=== PATIENT | female | born 1945 | race Caucasian/White ===

== ENCOUNTER 2018-05-29 06:05 | Day surgery (SDC) | payer OTHER ==
[~2018-05-29 06:05] MED LIST: ALENDRONATE PO; ASPIR 8181 MG PO; LOTREL PO; PANADOL PO; RELAFEN PO
[2018-05-29] MEDS ORDERED: ULTRACET PO (09:22)
[2018-05-29] MEDS ORDERED: MACROBID 100 M100 MG PO (09:22)
== END 2018-05-29 12:40 | disposition home or self-care (01) ==
LOC: CIR.AMB 06:05
DX: N81.3 Complete uterovaginal prolapse (principal)